=== PATIENT | male | born 1960 ===

== ENCOUNTER 2018-04-04 10:13 | Day surgery (SDC) | payer OTHER ==
[~2018-04-04 10:13] MED LIST: Buffered Lidocaine 0.9% SYRIN* 5 ML/SYR SYRINGE INTRADERM ONE; Famotidine IV* 10 MG/ML 2 ML (20 mg) IV ONE; Metoclopramide IV* 5 MG/ML 2 ML VIAL IV SLOW PU ONE
[2018-04-04] MEDS ORDERED: Metoclopramide IV* 5 MG/ML 2 ML VIAL ONE (10:39)
[2018-04-04] MEDS ORDERED: Famotidine IV* 10 MG/ML 2 ML (20 mg) ONE (10:39)
[2018-04-04] MEDS ORDERED: ceFAZolin 2 GM PREMIX in ORs 2 GM/50 ML BAG IVPB ONE (10:40)
[2018-04-04] MEDS ORDERED: fentaNYL* 50 MCG/ML 2 ML VIAL (100 MCG VIAL) ONE ×2 (12:08→14:50)
[2018-04-04] MEDS ORDERED: Midazolam* 1 MG/ML 2 ML VIAL (2 MG) ONE (12:09)
[2018-04-04] MEDS ORDERED: Bupivacaine 0.5% W/EPI SDV* 30 ML VIAL ONE (12:44)
[2018-04-04] MEDS ORDERED: Naloxone* 0.4 MG/ML 1 ML VIAL IV PRN (12:44)
[2018-04-04] MEDS ORDERED: Lidocaine 1% INJ* 10 MG/ML 30 ML SDV ONE (12:45)
[2018-04-04] MEDS ORDERED: Propofol* 10 MG/ML 20 ML BTL ONE ×2 (13:04→14:00)
[2018-04-04] MEDS ORDERED: Ketorolac INJ* 30 MG/ML 1 ML VIAL IV PRN (14:29)
[2018-04-04] MEDS ORDERED: Ondansetron INJ* 2 MG/ML VIAL IV PRN (14:29)
[2018-04-04] MEDS ORDERED: fentaNYL* 50 MCG/ML 2 ML VIAL (100 MCG VIAL) IV PRN (14:29)
[2018-04-04] MEDS ORDERED: Ketorolac INJ* 30 MG/ML 1 ML VIAL ONE (14:32)
[2018-04-04] MEDS ORDERED: oxyCODONE/Acetamin 5/325 MG* TAB PO PRN (14:43)
[2018-04-04] MEDS ORDERED: oxyCODONE/Acetamin 5/325 MG* TAB ONE (14:50)
--- NOTE | 2018-04-04 15:24 | BRIEFOPN ---
Brief Operative Note - Surgery Procedures: PRE/POSTOP DX: UMBILICAL HERNIA PROC: OPEN REPAIR OF UMB HERNIA WITH MESH SURG: MECENAS ANES: LOCAL/MAC; [facility] EBL: MIN IVF: CRYSTALLOID SPEC: NONE DRAIN/COMPL: NONE COND: STABLE TO RR
[2018-04-04 15:44] VITALS: BP 122/79
--- NOTE | 2018-04-07 08:48 | OP ---
CC: Angella Wheatley MD, in [place] * DATE OF OPERATION: 04/04/18 - [facility] DATE OF : 64 SURGEON: Velasquez Salomon MD. MILL CONTROL OPERATOR: LILIANA Chau student. ANESTHESIOLOGIST: Stanley Salguero MD. ANESTHESIA: Local MAC. PRE-OP DIAGNOSIS: Umbilical hernia. POST-OP DIAGNOSIS: Umbilical hernia. OPERATIVE PROCEDURE: Open repair of umbilical hernia with mesh. ESTIMATED BLOOD LOSS: Less than 10 mL. FLUIDS: IV fluids are crystalloids. SPECIMENS: None. DRAINS: None. COMPLICATIONS: None. COUNTS: The instrument, needle, and sponge counts were correct. DESCRIPTION OF PROCEDURE: The patient was brought to the operating room, placed on the table supine. Sequential compression devices were placed on both lower extremities and general anesthesia was administered. His abdomen was prepped and draped in the usual sterile fashion. He received appropriate antibiotics and time-out was performed. Local anesthetic was infiltrated into the skin and soft tissue prior to making each incision. A curvilinear infraumbilical incision was created. The umbilical hernia had incarcerated fat. The umbilical hernia sac was entered and there was omentum stuck within this. Lysis of adhesions to the sac was performed to free the omentum which was returned to the abdominal cavity. The sac was excised. The hernia defect was about 2.5 to 3 cm. The repair was performed with Ventralex ST mesh using a large size patch. This was placed within the peritoneal cavity. Next the subcutaneous tissues around the umbilicus were elevated so that transabdominal sutures of 0 Ethibond could be placed in 4 quadrants around the hernia in order to secure it. Prior to securing the mesh, inspection was performed circumferentially to be sure that the mesh was deployed appropriately and there was no viscera between the mesh and the abdominal wall. Subsequently, the straps for the mesh were cut and the hernia defect was closed transversely with additional 0-Ethibond suture in interrupted fashion. The umbilical stalk was then reapproximated to the anterior abdominal wall using two sutures of 3-0 Vicryl. The wound was then closed with deep dermal sutures as a deeper layer and then running subcuticular 4-0 Monocryl for the skin edge. Steri-strips and compression dressing were applied. The patient tolerated the procedure well and was transferred to the Recovery in stable condition. [id number] #: [id number] [facility]
== END 2018-04-04 15:56 | disposition home or self-care (01) ==
LOC: OR 10:13
PROVIDERS: ATTEND Surgery
DX: K42.9 Umbilical hernia without obstruction or gangrene (principal); E11.9 Type 2 diabetes mellitus without complications; Z79.84 Long term (current) use of oral hypoglycemic drugs; E78.00 Pure hypercholesterolemia, unspecified; I95.9 Hypotension, unspecified; G47.33 Obstructive sleep apnea (adult) (pediatric); Z68.32 Body mass index [BMI] 32.0-32.9, adult; M19.90 Unspecified osteoarthritis, unspecified site
CPT/HCPCS: A9270-GY; C1781; J0690; J1885; J2250; J2704; J2765; J3010

== ENCOUNTER 2020-10-24 10:05 | Inpatient (IN) ==
[2020-10-24] MEDS ORDERED: Heparin - STEMI 5,000 UNITS/ML 1 ml VIAL IV ONE (10:13)
[2020-10-24] MEDS ORDERED: Nitro 2% OINT (Nitroglycerin) 1 INCH/PAK ONE (10:17)
[2020-10-24 10:20] LABS: ABS Monocytes 0.7 10^3/ul (0-0.8); ABS Neutrophils 3.6 10^3/ul (1.5-7.7); Eosinophil % 0.6 %; Hematocrit 47 % (42-52); Hemoglobin 16.1 g/dL (14.0-18.0); Lymphocyte % 31.3 %; Mean Corpuscular HGB Conc 34 g/dL (31-36); Mean Corpuscular Hemoglobin 32 pg (27-31); Mean Corpuscular Volume 92 fL (80-94); Mean Platelet Volume 7.8 fL (7.4-10.4); Nucleated Red Blood Cells % 0.1; Platelet Count 198 10^3/uL (150-450); Red Blood Count 5.11 10^6 /uL (4.18-5.48); Red Cell Distribution Width 13 % (10-15); White Blood Count 6.4 10^3/uL (3.5-10.8)
[2020-10-24 10:36] LABS: Albumin 4.5 g/dL (3.2-5.2); Albumin/Globulin Ratio 1.7 (1-3); Calcium 9.3 mg/dL (8.6-10.3); EGFR African American 106.2 (>60); EGFR Non-African American 87.8 (>60); Globulin 2.7 g/dL (2-4); Magnesium 1.7 mg/dL (1.9-2.7); Potassium 4.5 mmol/L (3.5-5.0); Total Bilirubin 0.5 mg/dL (0.2-1.0); Total Protein 7.2 g/dL (6.4-8.9)
[2020-10-24 10:38] LABS: Troponin I 0.02 ng/mL (<0.03)
[2020-10-24] MEDS ORDERED: Bivalirudin 250 MG VIAL ONE ×3 (10:43→12:18)
[2020-10-24] MEDS ORDERED: Adenosine (DIAGNOSTIC) 3 mg/ml 20 ML VIAL (60 MG) IV ONE (10:50)
[2020-10-24] MEDS ORDERED: HYDROmorphone 1 MG/1 ML SYRINGE ONE (10:53)
[2020-10-24] MEDS ORDERED: Iohexol 350 (CONTRAST) 200 ML MDV IV ONE ×3 (11:58→13:35)
[2020-10-24] MEDS ORDERED: NS 0.9% 1000 ml BAG 1,000 ML IV SCH (13:15)
[2020-10-24] MEDS ORDERED: diPHENhydraMINE IV 50 MG/ML 1 ml VIAL (BENADRYL) ONE (13:34)
[2020-10-24] MEDS ORDERED: VERAPAMIL 2.5 MG/ML 2 ML VIAL ** 5 mg/2 ml ONE (13:34)
[2020-10-24] MEDS ORDERED: Midazolam 5 mg/5 ml VIAL 1 mg/ml 5 ml VIAL (5 mg) ONE (13:34)
[2020-10-24] MEDS ORDERED: Heparin 1,000 UNIT/ML 10 ml (10,000 UNITS) CATHLAB/DIALYSIS ONE (13:34)
[2020-10-24] MEDS ORDERED: nitroGLYCERIN DRIP 25,000 MCG/250 ML BTL ONE (13:35)
[2020-10-24] MEDS ORDERED: Lidocaine 1% VIAL 10 MG/ML VIAL ONE (13:35)
[2020-10-24] MEDS ORDERED: Heparin 2 UNITS/ML 1000 mls 3,000 ML IV ONE (13:35)
[2020-10-24 14:39] LABS: Troponin I 15.74 ng/mL (<0.03)
[2020-10-24] MEDS ORDERED: Magnesium Sulfate IV 3 GM in NS 0.9% 100 ml BAG 100 ML IVPB ONE (15:00)
[2020-10-24] MEDS ORDERED: Perflutren Lipid Microsphere 3 ML VIAL ONE (15:22)
[2020-10-24 20:35] LABS: Troponin I 64.72 ng/mL (<0.03)
[2020-10-24 21:23] LABS: Calcium 9.1 mg/dL (8.6-10.3); EGFR African American 116.8 (>60); EGFR Non-African American 96.5 (>60); Magnesium 2.1 mg/dL (1.9-2.7); Phosphorus 3.5 mg/dL (2.5-5.0)
[2020-10-25 04:32] LABS: ABS Lymphocytes 1.2 10^3/ul (1.0-4.8); ABS Neutrophils 7.4 10^3/ul (1.5-7.7); Eosinophil % 0.1 %; Hematocrit 45 % (42-52); Hemoglobin 15.4 g/dL (14.0-18.0); Lymphocyte % 12.2 %; Mean Corpuscular HGB Conc 35 g/dL (31-36); Mean Corpuscular Hemoglobin 32 pg (27-31); Mean Corpuscular Volume 92 fL (80-94); Mean Platelet Volume 7.7 fL (7.4-10.4); Platelet Count 188 10^3/uL (150-450); Red Blood Count 4.85 10^6 /uL (4.18-5.48); Red Cell Distribution Width 13 % (10-15); White Blood Count 9.5 10^3/uL (3.5-10.8)
[2020-10-25 04:53] LABS: Albumin 4.3 g/dL (3.2-5.2); Albumin/Globulin Ratio 1.7 (1-3); Calcium 8.9 mg/dL (8.6-10.3); EGFR African American 140.2 (>60); EGFR Non-African American 115.8 (>60); Globulin 2.5 g/dL (2-4); HDL Cholesterol 46.8 mg/dL; Total Bilirubin 0.9 mg/dL (0.2-1.0); Total Protein 6.8 g/dL (6.4-8.9)
[2020-10-25 05:12] LABS: Magnesium 1.9 mg/dL (1.9-2.7); Phosphorus 3.6 mg/dL (2.5-5.0)
[2020-10-25] MEDS ORDERED: Magnesium Sulfate 2 gm BAG 2 GM/50 ML BAG IVPB ONE (05:22)
[2020-10-25] MEDS ORDERED: Dextrose 50% Syringe 50 ml 25 GM/50 ML SYRINGE IV PUSH PRN (11:06)
[2020-10-26 12:57] VITALS: BP 100/47
== END 2020-10-26 13:45 | disposition home or self-care (01) ==
LOC: ED 10:05 → ICU 10:18 → CHICARD 10:18 → ICU 13:07 → MEDTELE 10-25 16:52
PROVIDERS: ADMIT Internal Medicine Cardiovascular Disease; ATTEND Internal Medicine